=== PATIENT | female | born 1995 | race Caucasian/White ===

== ENCOUNTER 2021-06-12 20:24 | Emergency (ER) | payer SELFPAY ==
--- OUTSIDE RECORDS SUMMARY | 2021-06-12 20:43 | XMS REPORT | Continuity of Care Document ---
:1995 Author Organization [facility] t Address [address] [place] [address] Care Team Providers Name Role Phone PCP, DOES NOT HAVE A Primary Care Physician Unavailable Jaden TORRES Attending Clinician Unavailable Víctor Alarcon MD Attending Clinician Víctor ALARCON Attending Clinician Unavailable Víctor ALARCON Admitting Clinician Unavailable Payers Payer Name Policy Type Policy Number Effective Date Expiration Date S maribeth [id number] 2020 00:00:00 Problems Condition Condition Condition Status Onset Resolution Last Treating Co mments Source Name Details Category Date Date Treatment Clinician Date Drug abuse Drug abuse Disease Active Overview : Univers 7-12 Last used ity of 00:00: [address] Allergies, Adverse Reactions, Alerts Allergy Allergy Status Severity Reaction(s) Onset Inactive Treating Comm ents Source Name Type Date Date Clinician NO KNOWN Drug Active Univers ALLERGIE Class ity of S [facility] Social History Social Habit Start Date Stop Date Quantity Comments Source History of Cigarette Smoker Universi ty of tobacco use [facility] Sex Assigned At Universit y of [facility] Exposure to Not sure University of SARS-CoV-2 [facility] (event) Branch Alcohol intake 2018-10-28 2018-10-28 University of 00:00:00 00:00:00 [facility] Tobacco Comment 2017-05-31 2017-05-31 7 cigs/day Universit y of 00:00:00 00:00:00 [facility] Smoking Status Start Date Stop Date Source Current every day smoker 2018-10-28 00:00:00 Uni versity of [facility] Medications Ordered Filled Start Stop Current Ordering Indication Dosage Frequency Signature Comments Components Source Medication Medication Date Date Medication? Clinician (SIG) Name Name ketorolac 2020- No 30mg 30 mg, Unive rs (TORADOL) 09-08 Slow IV ity of injection 10:30: 09:33 [place], [place] 30 mg 00 :00 ONCE, 1 Medical dose, Wed Branch 09/09/19 at 0530, Routine
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 Branc h IUD tramadol 2017-05 Yes Take by Unive rs HCl 2-08 mouth. ity of (TRAMADOL 03:31: [place] ORAL) 45 Medical Branch phenazopyri Yes 200mg Take 1 Uni vers dine 01-17 tablet by ity of (PYRIDIUM) 00:00: mouth 3 [place] 200 mg 00 (three) Medical tablet times Branch daily after meals. triamcinolo Yes [id number] Apply to [facility] 01-06 [id number] area(s) 2 ity of acetonide 00:00: (two) [place] 0.1 % cream 00 times Medical daily. Branch ondansetron Yes 4mg Take 1 Univ ers (ZOFRAN) 4 11-12 tablet by ity of mg tablet 00:00: mouth [place] 00 every 8 Medical (eight) Branch hours as needed for N/V unresponsi ve to [facility] [place]. acetaminoph Yes [id number] 1{capsu Take 1 [facility] en-caff-but 10-29 le} capsule by it y of albital 00:00: mouth [place] (ESGIC) per 00 every 4 Medic al capsule (four) Branch hours as needed for Headache. Immunizations Ordered Immunization Filled Immunization Date Status Commen ts Source Name Name Abril COVID-19 Abril COVID-19 2020-10-18 Completed Vaccine Vaccine 00:00:00 Vital Signs Vital Name Observation Time Observation Value Comments Source Systolic blood 2019-09-09 10:34:00 111 mm[Hg] Univer sity of pressure [facility] Diastolic blood 2019-09-09 10:34:00 57 mm[Hg] Unive rsity of pressure [facility] Heart rate 2019-09-09 10:34:00 79 /min [facility] Respiratory rate 2019-09-09 10:34:00 15 /min [facility] Oxygen saturation in 2019-09-09 10:34:00 99 /min [facility] Arterial blood by [facility] Pulse oximetry [place] Body temperature 2019-09-09 09:07:00 36.72 Janet [facility] Body height 2019-09-09 09:07:00 167.6 cm [facility] Body weight 2019-09-09 09:07:00 59.875 kg [facility] BMI 2019-09-09 09:07:00 21.31 kg/m2 [facility] Procedures Procedure Date / Time Performing Clinician Source Performed XR PELVIS <3 VW 2019-09-09 10:12:10 Will Alarcon [facility] BASIC METABOLIC PANEL 2019-09-09 09:26:00 Will Alarcon [facility] (NA, K, CL, CO2, [facility] GLUCOSE, BUN, CREATININE, CA) CBC WITH DIFFERENTIAL 2019-09-09 09:26:00 Will Alarcon [facility] URINALYSIS 2019-09-09 09:26:00 Will Alarcon [facility] POCT TEST 2019-09-09 09:19:00 Will Alarcon [facility] CONSENT/REFUSAL FOR 2019-09-09 09:10:35 Doctor Unassigned, No Un [facility] DIAGNOSIS AND TREATMENT Name Medical [place] Encounters Start End Encounter Admission Attending Care Care Encounter Source Date/Time Date/Time Type Type Clinicians Facility Department ID 2020-10-18 2020-10-18 Outpatient GCCOVIDV GCCOVIDV [id number] GCCOVID 00:00:00 00:00:00 V 2020-01-22 2020-01-22 Outpatient Rohan TORRES [facility] [id number] Univers 15:00:00 15:00:00 MICHELLE [id number] [facility] 2020-01-14 2020-01-14 Outpatient Rohan TORRES [facility] [id number] Univers 09:30:00 09:30:00 MICHELLE [id number] [facility] 2020-01-14 2020-01-14 Outpatient R BRIAN [facility] [id number] Univers 09:30:00 09:30:[address] [facility] [place] [place] 2019-09-09 2019-09-09 Emergency Agnes [facility] [id number] Univers 04:09:49 05:36:[facility] [id number] it y of [place] [id number] [facility] [id number] [address] ([facility]) 2019-09-09 2019-09-09 Emergency X AGNES [facility] ERT [id number] Univers 04:09:49 05:36:[address] [facility] [place] [place] Results Test Description Test Time Test Comments Results Result Comments Source Urinalysis 2019-09-09 10:00:00 Test Item Value Reference Range Interpretation Comme nts APPEARANCE (test code = Hazy Clear A 1842386818) COLOR (test code = 3181177366) Yellow Yellow PH (test code = 0549687529) 4.8-8.0 SP GRAVITY (test code = 1.003-1.030 7963765305) GLU U QUAL (test code = Normal Normal 3562272086) BLOOD (test code = 5065249289) Negative Negative KETONES (test code = 9244120174) Negative Negative PROTEIN (test code = 2887-8) Negative Negative UROBILIN (test code = 6118745479) Normal Normal BILIRUBIN (test code = Negative Negative 9226889054) NITRITE (test code = 2501924339) Negative Negative LEUK LIZZ (test code = Negative Negative 1252141993) RBC/HPF (test code = 1828269172) See_Comment [Automated message] The system which ge nerated this result transmit alice reference range: 0 - 3 HP F. The reference range was not used to interpret th is result as normal/abnormal . WBC/HPF (test code = 2587064605) See_Comment [Automated message] The system which ge nerated this result transmit alice reference range: 0 - 5 HP F. The reference range was not used to interpret th is result as normal/abnormal . BACTERIA (test code = 7816984110) Negative Negative SQ EPITH (test code = 0765627608) See_Comment [Automated message] The system which ge nerated this result transmit alice reference range: <=2 HPF. The reference range was not u sed to interpret this result as normal/abnormal . Lab Interpretation (test code = Abnormal 66813-4) [facility] Metabolic Panel (NA, K, CL, CO2, GLUCOSE, BUN, CREATININE, CA)2019-09-09 09:43:00 Test Item Value Reference Range Interpretation Comments NA (test code = 140 mmol/L 135-145 7744783235) K (test code = 3.7 mmol/L 3.5-5 9814711130) CL (test code = 108 mmol/L 98-108 7898319380) CO2 TOTAL (test code = 27 mmol/L 23-31 9269176644) AGAP (test code = 2-16 1675172392) BUN (test code = 10 mg/dL 7-23 8377484305) GLUCOSE (test code = 93 mg/dL 70-110 5697250599) CREATININE (test code 0.66 mg/dL 0.5-1.04 = 1064349548) CALCIUM (test code = 9.8 mg/dL 8.6-10.6 2921444477) eGFR Calculation mL/min/1.73m2 (Non-) (test code = 3133921947) eGFR Calculation mL/min/1.73m2 () (test code = 6852721788) CRISTINA (test code = CRISTINA) Association of Glomerular Filtration Rate (GFR) and Staging of Kidney Disease* + -+ + ---+| GFR (mL/min/1.73 m2) ?| With Kidney Damage ?| ?Without Kidney Damage+ -------+ ------+ ---------+| ?>90 ?| ?Stage one ?| ? Normal ?+ --+ -+ ----+| ?60-89 ?| ?Stage two ?| ? Decreased GFR ? + -+ + ---+| ?30-59 ?| ?Stage three ?| ? Stage three ? + -+ + ---+| ?15-29 ?| ?Stage four ? | ? Stage four ?+ --+ -+ ----+| ?<15 (or dialysis) ? ?| ?Stage five ? | ? Stage five ?+ --+ -+ ----+ *Each stage assumes the associated GFR level has been in effect for at least three months. ?Stages 1 to 5, with or without kidney disease, indicate chronic kidney disease. Notes: Determination of stages one and two (with eGFR >59mL/min/1.73 m2) requires estimation of kidney damage for at least three months as defined by structural or functional abnormalities of the kidney, manifested by either:Pathological abnormalities or Markers of kidney damage (including abnormalities in the composition of the blood or urine or abnormalities in imaging tests). [facility] WITH [id number] 09:34:00 Test Item Value Reference Range Interpretation Comments WBC (test code = See_Comment [Automated 3012-2) message] The sy stem which generated this result transmitted reference range : 4.30 - 11.10 10*3/?L. The reference range was not used to interpret this result as normal/abnormal . RBC (test code = See_Comment [Automated 739-8) message] The sy stem which generated this result transmitted reference range : 3.93 - 5.25 10*6/?L. The reference range was not used to interpret this result as normal/abnormal . HGB (test code = 13.0 g/dL 11.6-15 718-7) HCT (test code = 38.3 % 35.7-45.2 4544-3) MCV (test code = 91.2 fL 80.6-95.5 787-2) MCH (test code = 31.0 pg 25.9-32.8 785-6) MCHC (test code = 33.9 g/dL 31.6-35.1 786-4) RDW-SD (test code = 46.2 fL 39-49.9 38090-1) RDW-CV (test code = 13.8 % 12-15.5 788-0) PLT (test code = See_Comment [Automated 777-3) message] The sy stem which generated this result transmitted reference range : 166 - 358 10*3/ ?L. The reference r joss was not used to interpret this result as normal/abnormal . MPV (test code = 10.3 fL 9.5-12.9 03887-3) NRBC/100 WBC (test See_Comment [Automat ed code = 4338289294) message] The system which generated this result transmitted reference range : 0.0 - 10.0 /100 WBCs. The refer ence range was not u sed to interpret th is result as normal/abnormal . NRBC x10^3 (test code <0.01 See_Comment [Auto mated = 5127944234) message] The s ystem which generated this result transmitted reference range : 10*3/?L. The reference range was not used to interpret this result as normal/abnormal . GRAN MAT (NEUT) % 38.7 % (test code = 770-8) IMM GRAN % (test code 0.10 % = 8458279374) LYMPH % (test code = 51.6 % 736-9) MONO % (test code = 6.3 % 5905-5) EOS % (test code = 2.6 % 713-8) BASO % (test code = 0.7 % 706-2) GRAN MAT x10^3(ANC) 2.96 10*3/uL 1.88-7.09 (test code = 2132876163) IMM GRAN x10^3 (test <0.03 0-0.06 code = 5606043729) LYMPH x10^3 (test code 3.95 10*3/uL 1.32-3.29 H = 731-0) MONO x10^3 (test code 0.48 10*3/uL 0.33-0.92 = 742-7) EOS x10^3 (test code = 0.20 10*3/uL 0.03-0.39 711-2) BASO x10^3 (test code 0.05 10*3/uL 0.01-0.07 = 704-7) Lab Interpretation Abnormal (test code = 42850-9) [facility] [id number] 09:19:00 Test Item Value Reference Range Interpretation Comments POCT PREG (test code = 1605) Negative On board controls acceptable with Present C Line (test code = 3574) POCT PREG LOT # (test code = 3575) [id number] POCT PREG TEST DATE (test 2020-12-10 code = 3576) Lab Interpretation (test code = Normal 10392-5) [facility]"
[2021-06-12] MEDS ORDERED: METOCLOPRAMIDE 10 MG/2mL INJ ONE (21:48)
[2021-06-12] MEDS ORDERED: DIPHENHYDRAMINE 50 MG/ML VIAL ONE (21:48)
[2021-06-12] MEDS ORDERED: NA CHLORIDE 0.9% 1,000 ML ONE (21:49)
[2021-06-12] MEDS ORDERED: ONDANSETRON 4 MG/2 ML VIAL ONE (21:49)
[2021-06-12 21:57] LABS: Urine Blood Trace-lysed (Negative); Urine Glucose Negative (Negative); Urine Protein Negative (Negative)
[2021-06-12 22:14] LABS: Urine Bacteria >50 /HPF (<20); Urine RBC <5 /HPF (NONE SEEN)
[2021-06-12 22:23] LABS: Absolute Lymphocytes (CBC) 0.5 K/uL (0.7-4.9); Hematocrit 39.9 % (36.0-45.0); Lymphocytes % 9.5 % (15.3-44.8); MPV 8.2 fL (7.6-11.3); RBC Red Blood Cell Count 4.53 M/uL (3.86-4.86)
[2021-06-12 22:25] LABS: Albumin 3.9 g/dL (3.4-5.0); Bilirubin Direct 0.2 mg/dL (0-0.2); Bilirubin Total 0.8 mg/dL (0.2-1.0); Potassium 3.4 mmol/L (3.5-5.1); Protein, Total 7.9 g/dL (6.4-8.2)
[2021-06-12] MEDS ORDERED: NA CHLORIDE 0.9% 50 ML ONE (22:26)
[2021-06-12] MEDS ORDERED: KETOROLAC 30 MG/ML INJ ONE (22:26)
[2021-06-12] MEDS ORDERED: CEFTRIAXONE 1000 MG/VIAL ONE (22:26)
[2021-06-12 23:47] LABS: SARS-COV-2 RT PCR POSITIVE (NEGATIVE)
--- NOTE | 2021-06-12 23:59 | ER ---
Nurse's Notes [facility] Name: Ariadna Pham Age: 25 yrs Sex: Female : 1995 Arrival Date: 06/12/2021 Time: 20:27 Bed 18 Private MD: Diagnosis: Coronavirus infection, unspecified;UTI/ Urinary tract infection, site not specified Presentation: 06/12 20:52 Chief complaint: Patient states: "I just started feeling sick. I felt like I dying. I tw5 had a migrane, and really high fever about an hour ago, then chills and sweats and shortness of breath.". Coronavirus screen: Vaccine status: Patient reports receiving the 2nd dose of the covid vaccine. J and J just the one shot. Ebola Screen: Patient negative for fever greater than or equal to 101.5 degrees Fahrenheit, and additional compatible Ebola Virus Disease symptoms Patient denies exposure to infectious person. Patient denies travel to an Ebola-affected area in the 21 days before illness onset. Initial Sepsis Screen: Does the patient meet any 2 criteria? HR > 90 bpm. Does the patient have a suspected source of infection? No. Patient's initial sepsis screen is negative. Risk Assessment: Do you want to hurt yourself or someone else? Patient reports no desire to harm self or others. Onset of symptoms was June 12, 2021 at 18:00. 20:52 Method Of Arrival: Ambulatory tw5 20:52 Acuity: AIDA 3 tw5 Triage Assessment: 20:56 Headache History: Denies prior headaches. General: Appears uncomfortable, Behavior is tw5 calm, cooperative, appropriate for age. Pain: Complains of pain in headache Pain currently is 7 out of 10 on a pain scale. Pain began 3 hours ago. Pain: Also complains of decreased appetite, photophobia. Neuro: Level of Consciousness is awake, alert, obeys commands, Oriented to person, place, time, situation. 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 - Social history:: Smoking status: Patient reports the use of cigarette tobacco products, smokes one-half pack cigarettes per day. Screenin/01 00:13 Abuse screen: Denies threats or abuse. Nutritional screening: No deficits noted. sf1 Tuberculosis screening: No symptoms or risk factors identified. Fall Risk None identified. Vital Signs: 06/12 20:52 BP 126 / 73; Pulse 138; Resp 20; Temp 98.7(O); Pulse Ox 100% on R/A; Weight 97.98 kg; tw5 Height 5 ft. 7 in. (170.18 cm); Pain 7/10; 23:56 BP 122 / 72; Pulse 116; Resp 18; Pulse Ox 98% on R/A; sf1 20:52 Body Mass Index 33.83 (97.98 kg, 170.18 cm) tw5 ED Course: 20:27 Patient arrived in ED. es 20:52 Jaye Chacon is Primary Nurse. tw5 20:52 Matt Gutiérrez PA is PHCP. cp 20:52 Matt Barros MD is Attending Physician. cp 20:56 Triage completed. tw5 20:56 Arm band placed on left wrist. tw5 21:58 Urine Dipstick-Ancillary Sent. ld1 21:58 COVID-19/FLU A+B/RSV (Document "Date of Onset" if Symptomatic) Sent. ld1 22:01 CBC with Automated Diff Sent. sf1 22:01 Liver (Hepatic) Function Sent. sf1 22:01 Basic Metabolic Panel Sent. sf1 22:02 Basic Metabolic Panel Sent. sf1 22:02 CBC with Diff Sent. sf1 22:02 Hepatic Function Sent. sf1 22:02 Inserted saline lock: 20 gauge in right antecubital area, using aseptic technique. sf1 Blood collected. 22:13 PHCP role handed off by Matt Gutiérrez PA pm1 22:13 Nile Hagan NP is PHCP. pm1 06/13 00:13 Patient has correct armband on for positive identification. sf1 00:13 No provider procedures requiring assistance completed. IV discontinued, intact, sf1 bleeding controlled, No redness/swelling at site. Pressure dressing applied. Administered Medications: 06/12 22:01 Drug: Reglan (metoCLOPramide) 10 mg Route: IVP; Site: right antecubital; sf1 22:01 Drug: Zofran (Ondansetron) 4 mg Route: IVP; Site: right antecubital; sf1 22:01 Drug: Benadryl (diphenhydrAMINE) 25 mg Route: IVP; Site: right antecubital; sf1 22:02 Drug: NS 0.9% 1000 ml Route: IV; Rate: 1 bolus; Site: right antecubital; sf1 22:30 Drug: Ketorolac 30 mg Route: IVP; Site: right antecubital; sf1 22:30 Drug: Rocephin - (cefTRIAXone) 1 grams Route: IVPB; Infused Over: 30 mins; Site: right sf1 antecubital; Outcome: 23:59 Discharge ordered by . pm1 06/13 00:13 Discharged to home ambulatory. sf1 Condition: good Discharge instructions given to patient, Instructed on discharge instructions, follow up and referral plans. Demonstrated understanding of instructions, follow-up care, medications, Prescriptions given X 2. 00:14 Patient left the ED. sf1 Signatures: Sara Yañez Corey, PA PA Nile Watkins, ROM CANARY RAISER pm1 Yessi Nicole RN RN ld1 Jaye Chacon tw5 Rita Taylor RN RN sf1
--- NOTE | 2021-06-13 | EDPHYS ---
Physician Documentation [facility] Name: Ariadna Pham Age: 25 yrs Sex: Female : 1995 Arrival Date: 06/12/2021 Time: 20:27 Bed 18 Private MD: ED Physician Matt Barros HPI: 06/12 21:15 This 25 yrs old Female presents to ER via Ambulatory with complaints of Runny Nose, cp Headache, Cough. 21:15 The patient or guardian reports cough. Onset: The symptoms/episode began/occurred cp today. Associated signs and symptoms: Pertinent positives: headache. 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 - Social history:: Smoking status: Patient reports the use of cigarette tobacco products, smokes one-half pack cigarettes per day. ROS: 21:20 Constitutional: Negative for fever, poor PO intake. cp 21:20 ENT: Positive for rhinorrhea. cp 21:20 Respiratory: Positive for cough, Negative for shortness of breath, wheezing. 21:20 Abdomen/GI: Negative for abdominal pain, vomiting, diarrhea, constipation. 21:20 Neuro: Positive for headache. 21:20 All other systems are negative. 23:52 Cardiovascular: Negative for chest pain, palpitations, and edema, Abdomen/GI: Negative pm1 for abdominal pain, nausea, vomiting, diarrhea, and constipation. 23:52 Respiratory: Positive for cough, Negative for shortness of breath. 23:52 Neuro: Positive for headache. Exam: 21:25 Constitutional: The patient appears in no acute distress, alert, awake, non-toxic, well cp developed, well nourished. 21:25 Head/Face: Normocephalic, atraumatic. cp 21:25 Eyes: Periorbital structures: appear normal, Conjunctiva: normal, no exudate, no injection, Sclera: no appreciated abnormality, Lids and lashes: appear normal, bilaterally. 21:25 ENT: External ear(s): are unremarkable, Ear canal(s): are normal, clear, TM's: dullness, bilaterally, Nose: is normal, Mouth: Lips: moist, Oral mucosa: moist, Posterior pharynx: Airway: no evidence of obstruction, patent, Tonsils: are normal in appearance. 21:25 Neck: ROM/movement: is normal, is supple, without pain, no range of motions limitations, no meningismus, Lymph nodes: no appreciated lymphadenopathy. 21:25 Chest/axilla: Inspection: normal. 21:25 Cardiovascular: Rate: tachycardic, Rhythm: regular. 21:25 Respiratory: the patient does not display signs of respiratory distress, Respirations: normal, no use of accessory muscles, no retractions, labored breathing, is not present, Breath sounds: are clear throughout, no decreased breath sounds, no stridor, no wheezing. 21:25 Abdomen/GI: Exam negative for discomfort, distension, guarding, Inspection: abdomen appears normal. 21:25 Skin: no rash present. 21:25 Neuro: Orientation: to person, place \\T\\ time. Mentation: is normal, Motor: moves all fours, strength is normal, Sensation: is normal. 21:52 ECG was reviewed by the Attending Physician. cp Vital Signs: 20:52 BP 126 / 73; Pulse 138; Resp 20; Temp 98.7(O); Pulse Ox 100% on R/A; Weight 97.98 kg; tw5 Height 5 ft. 7 in. (170.18 cm); Pain 7/10; 23:56 BP 122 / 72; Pulse 116; Resp 18; Pulse Ox 98% on R/A; sf1 20:52 Body Mass Index 33.83 (97.98 kg, 170.18 cm) tw5 MDM: 20:58 Patient medically screened. [facility] 23:52 Data reviewed: vital signs. Data interpreted: Pulse oximetry: on room air is 100 %. pm1 Interpretation: normal. 23:52 Counseling: I had a detailed discussion with the patient and/or guardian regarding: the pm1 historical points, exam findings, and any diagnostic results supporting the discharge/admit diagnosis, lab results, the need for outpatient follow up, to return to the emergency department if symptoms worsen or persist or if there are any questions or concerns that arise at home. 06/12 21:05 Order name: COVID-19/FLU A+B/RSV (Document "Date of Onset" if Symptomatic); Complete cp Time: 23:51 06/12 21:05 Order name: Urine Microscopic Only; Complete Time: 22:26 cp 06/12 21:09 Order name: Basic Metabolic Panel 06/12 21:09 Order name: CBC with Diff 06/12 21:09 Order name: Hepatic Function 06/12 21:10 Order name: Basic Metabolic Panel; Complete Time: 22:26 EDOH 06/12 21:10 Order name: CBC with Automated Diff; Complete Time: 22:26 EDOH 06/12 21:10 Order name: Liver (Hepatic) Function; Complete Time: 22:26 EDOH 06/12 21:57 Order name: Urine Dipstick-Ancillary; Complete Time: 22:13 [facility] 06/12 22:09 Order name: Urine --Ancillary (enter results); Complete Time: 22:26 mw2 06/12 22:15 Order name: Urine Culture [facility] 06/12 21:05 Order name: EKG; Complete Time: 21:05 cp 06/12 21:05 Order name: EKG - Nurse/Tech; Complete Time: 21:58 cp 06/12 21:05 Order name: Urine Dipstick-Ancillary (obtain specimen); Complete Time: 21:58 cp 06/12 21:05 Order name: Urine Test (obtain specimen); Complete Time: 21:58 cp 06/12 21:05 Order name: Urine Test (obtain specimen); Complete Time: 21:58 cp 06/12 21:09 Order name: IV Saline Lock; Complete Time: 22:02 cp 06/12 21:09 Order name: Labs collected and sent; Complete Time: 22:02 cp EC:52 Rate is 131 beats/min. Rhythm is regular. OH interval is normal. QRS interval is cp normal. QT interval is normal. Interpreted by me. Reviewed by me. Administered Medications: 22: Drug: Reglan (metoCLOPramide) 10 mg Route: IVP; Site: right antecubital; sf1 22: Drug: Zofran (Ondansetron) 4 mg Route: IVP; Site: right antecubital; sf1 22: Drug: Benadryl (diphenhydrAMINE) 25 mg Route: IVP; Site: right antecubital; sf1 22:02 Drug: NS 0.9% 1000 ml Route: IV; Rate: 1 bolus; Site: right antecubital; sf1 22:30 Drug: Ketorolac 30 mg Route: IVP; Site: right antecubital; sf1 22:30 Drug: Rocephin - (cefTRIAXone) 1 grams Route: IVPB; Infused Over: 30 mins; Site: right sf1 antecubital; Disposition: 06/13 15:17 Co-signature as Attending Physician, Matt Barros MD I agree with the assessment and natalie plan of care. Disposition Summary: 06/12/21 23:59 Discharge Ordered Location: Home pm1 Problem: new pm1 Symptoms: have improved pm1 Condition: Stable pm1 Diagnosis - Coronavirus infection, unspecified pm1 - UTI/ Urinary tract infection, site not specified pm1 Followup: pm1 - With: Emergency Department - When: As needed - Reason: Worsening of condition Followup: pm1 - With: Private Physician - When: 2 - 3 days - Reason: Recheck today's complaints, Continuance of care, Re-evaluation by your physician Discharge Instructions: - Discharge Summary Sheet pm1 - Urinary Tract Infection, Adult pm1 - COVID-19 pm1 - COVID-19 Frequently Asked Questions pm1 - 10 Things You Can Do to Manage Your COVID-19 Symptoms at Home - [facility] pm1 - COVID-19: Quarantine vs. Isolation - [facility] pm1 Forms: - Medication Reconciliation Form pm1 - Thank You Letter pm1 - Antibiotic Education pm1 - Prescription Opioid Use pm1 Prescriptions: - lfgrkrlviu-bhnaspc-quacqfqy - take 1 tablet by ORAL route every 4 hours As needed; 20 tablet; Refills: 0, pm1 Product Selection Permitted - Bactrim DS 800-160 mg Oral Tablet - take 1 tablet by ORAL route every 12 hours for 10 days; 20 tablet; Refills: 0, pm1 Product Selection Permitted Signatures: Dispatcher [employer] Matt Soto MD MD cha Page, Corey, PA PA cp Marinas, Patrick, RADIOLOGIC THERAPIST RADIOLOGIC THERAPIST pm1 Jaye Chacon tw5 Rita Taylor RN RN sf1
[2021-06-13 00:29] VITALS: TEMP 98.7
[2021-06-13 00:30] VITALS: BP 122/72; O2SAT 98
--- NOTE | 2021-06-13 08:15 | EKG ---
Test Date: 2021-06-12 Test Time: 21:45:41 Environmental Services Floor Tech: STEVEN MEASUREMENT RESULTS: Intervals: Rate: 131 NH: 176 QRSD: 86 QT: 280 QTc: 413 [place]: P: 55 NH: 176 QRS: 68 T: 18 INTERPRETIVE STATEMENTS: Sinus tachycardia Septal infarct, age undetermined Abnormal ECG No previous ECG available for comparison Electronically Signed On 06-13-21 08:13:44 S[employer]IOR [employer] CONSULTANT by Uziel Haider
== END 2021-06-13 00:14 | disposition home or self-care (01) ==
LOC: ER 20:24
DX: U07.1 COVID-19 (principal); N39.0 Urinary tract infection, site not specified; F32.A Depression, unspecified; F17.210 Nicotine dependence, cigarettes, uncomplicated
CPT/HCPCS: 0241U; 36415; 80048; 80076; 81003; 81015; 81025; 85025; 87077; 87086; 87088; 87186; 93005; 96374; 96375; 99284; J1200; J2405; J2765; J7030

== ENCOUNTER 2021-10-28 15:35 | Emergency (ER) | payer SELFPAY ==
--- OUTSIDE RECORDS SUMMARY | 2021-10-28 15:38 | XMS REPORT | Continuity of Care Document ---
:1995 Author Organization [facility] t Address [address] [place] [address] Care Team Providers Name Role Phone Pcp, Does Not Have A Primary Care Physician Hever KAYE Attending Clinician Unavailable Hever De Attending Clinician Unknown Attending Clinician Unavailable Jas Ibanez Attending Clinician JAS BERGER Attending Clinician Unavailable Doctor Unassigned, Name Attending Clinician Unavailable Jaden TORRES Attending Clinician Unavailable Víctor Alarcon MD Attending Clinician Víctor ALARCON Attending Clinician Unavailable Víctor ALARCON Admitting Clinician Unavailable Payers Payer Name Policy Type Policy Number Effective Date Expiration Date S ource Problems Condition Condition Condition Status Onset Resolution Last Treating Co mments Source Name Details Category Date Date Treatment Clinician Date Drug abuse Drug abuse Disease Active Overview : Univers 7-12 Formattin ity of 00:00: g of this [place] 00 note Medical might be Branch different from the original. Last used 7 Allergies, Adverse Reactions, Alerts Allergy Allergy Status Severity Reaction(s) Onset Inactive Treating Comm ents Source Name Type Date Date Clinician NO KNOWN Drug Active Univers ALLERGIE Class ity of S [facility] Social History Social Habit Start Date Stop Date Quantity Comments Source History of Cigarette Smoker Universi ty of tobacco use [facility] Exposure to Not sure University of SARS-CoV-2 [place] Medical (event) Branch Alcohol intake 2018-10-28 2018-10-28 Current University of 00:00:00 00:00:00 non-drinker of [facility] alcohol (finding) Branch Tobacco Comment 2017-05-31 2017-05-31 7 cigs/day Universit y of 00:00:00 00:00:00 [facility] Tobacco use and 2015-11-23 2015-11-23 Never used Universit y of exposure 00:00:00 00:00:00 [facility] Sex Assigned At [birth year] Universit y of 00:00:00 00:00:00 [facility] Smoking Status Start Date Stop Date Source Current every day smoker 2015-11-23 00:00:00 Uni versity [facility] Medications Ordered Filled Start Stop Current Ordering Indication Dosage Frequency Signature Comments Components Source Medication Medication Date Date Medication? Clinician (SIG) Name Name lidocaine Yes [id number] 15 mL Un shane 2% viscous -04 swished in ity of (LIDOCAINE 00:00: the mouth [place] VISCOUS) 2 00 and spit Medic al % solution out no Branch more frequently than every 3 hours cephALEXin 2021- No [id number] 500mg Take 1 Univers 500 mg 3-04 -12 tablet by ity of tablet 00:00: 05:59 mouth 4 [place] 00 :00 (four) Medical times Branch daily for 7 days. phenazopyri Yes [id number] 200mg Take 1 Univers dine 2-27 tablet by ity of (PYRIDIUM) 00:00[place] 200 mg 00 (three) Medical tablet times Branch daily after meals. phenazopyri Yes [id number] 200mg Take 1 Univers dine 2-27 tablet by ity of (PYRIDIUM) 00:00: mouth [place] 200 mg 00 (three) Medical tablet times Branch daily after meals. phenazopyri 0 Yes [id number] 200mg Take 1 Univers dine 2-27 tablet by ity of (PYRIDIUM) 00:00: mouth [place] 200 mg 00 (three) Medical tablet times Branch daily after meals. Nitrofurant 2021- No [id number] 100mg Take 1 Univers oin&Nit. 2-27 03-07 capsule by ity of [place] 00:00: 05:59 mouth 2 [place] (MACROBID) 00 :00 (two) Medical 100 mg times Branch capsule daily for 7 days. Nitrofurant 2021- No [id number] 100mg Take 1 Univers oin&Nit. 07-09- capsule by ity of [place] 00:00: 05:59 mouth 2 [place] (MACROBID) 00 :00 (two) Medical 100 mg times Branch capsule daily for 7 days. Nitrofurant 2021- No [id number] 100mg Take 1 Univers oin&Nit. 07-09- capsule by ity of [place] 00:00: 05:59 mouth 2 [place] (MACROBID) 00 :00 (two) Medical 100 mg times Branch capsule daily for 7 days. ketorolac 2019- No 30mg 30 mg, Unive rs (TORADOL) 09-08 Slow IV ity of injection 10:30: 09:33 Push, [place] 30 mg 00 :00 ONCE, 1 Medical dose, [facility] 09/09/19 at 0530, Routine
history faculty member approving Restricted medication : WILL ALARCON levonorgest 2017-05 Yes 1{devic 1 Device Univers rel 2-08 e} by ity of (MIRENA) 20 03:31: Intrauteri [place] mcg/24 hr 45 ne route Medica l (5 years) once now. Branc h IUD tramadol 2017-05 Yes Take by Unive rs HCl 2-08 mouth. ity of (TRAMADOL 03:31: [place] ORAL) 45 [facility] levonorgest 2017-05 Yes 1{devic 1 Device Univers rel 2-07 e} by ity of (MIRENA) 20 21:31: Intrauteri [place] mcg/24 hr 45 ne route Medica l (5 years) once now. Branc h IUD tramadol 2017-05 Yes Take by Unive rs HCl 2-07 mouth. ity of (TRAMADOL 21:31: [place] ORAL) 45 [facility] levonorgest 2017-05 Yes 1{devic 1 Device Univers rel 2-07 e} by ity of (MIRENA) 20 21:31: Intrauteri [place] mcg/24 hr 45 ne route Medica l (5 years) once now. Branc h IUD tramadol 2017-05 Yes Take by Unive rs HCl 2-07 mouth. ity of (TRAMADOL 21:31: [place] ORAL) 45 Medical Branch levonorgest 2017-05 Yes 1{devic 1 Device Univers rel 2 e} by ity of (MIRENA) 20 21:31: Intrauteri [place] mcg/24 hr 45 ne route Medica l (5 years) once now. Branc h IUD tramadol 2017-05 Yes Take by Unive rs HCl 2- mouth. ity of (TRAMADOL 21:31: [place] ORAL) 45 Medical Branch phenazopyri 2018-0 Yes 200mg Take 1 Uni vers dine 9 tablet by ity of (PYRIDIUM) 00:00: mouth 3 [place] 200 mg 00 (three) Medical tablet times Branch daily after meals. phenazopyri 2018-0 Yes 200mg Take 1 Uni vers dine 9- tablet by ity of (PYRIDIUM) 00:00: mouth 3 [place] 200 mg 00 (three) Medical tablet times Branch daily after meals. phenazopyri 2017-0 Yes 200mg Take 1 Uni vers dine 9 tablet by ity of (PYRIDIUM) 00:00: mouth 3 [place] 200 mg 00 (three) Medical tablet times Branch daily after meals. phenazopyri 2018-0 Yes 200mg Take 1 Uni vers dine 9 tablet by ity of (PYRIDIUM) 00:00: mouth 3 [place] 200 mg 00 (three) Medical tablet times Branch daily after meals. triamcinolo 2018- Yes [id number] Apply to [place] [address] [id number] area(s) 2 ity of acetonide 00:00: (two) [place] 0.1 % cream 00 times Medical daily. Branch triamcinolo 2017- Yes [id number] Apply to [facility] [id number] area(s) 2 ity of acetonide 00:00: (two) [place] 0.1 % cream 00 times Medical daily. Branch triamcinolo 2018-0 Yes [id number] Apply to [place] [address] [id number] area(s) 2 ity of acetonide 00:00: (two) [place] 0.1 % cream 00 times Medical daily. Branch triamcinolo 2017- Yes [id number] Apply to [facility] [id number] area(s) 2 ity of acetonide 00:00: (two) [place] 0.1 % cream 00 times Medical daily. Branch ondansetron 2018-0 Yes 4mg Take 1 Univ ers (ZOFRAN) 4 7-03 tablet by ity of mg tablet 00:00: mouth [place] 00 every 8 Medical (eight) Branch hours as needed for N/V unresponsi ve to Promethazi ne. ondansetron 2018-0 Yes 4mg Take 1 Univ ers (ZOFRAN) 4 7-03 tablet by ity of mg tablet 00:00: mouth [place] 00 every 8 Medical (eight) Branch hours as needed for N/V unresponsi ve to Promethazi ne. ondansetron 2018-0 Yes 4mg Take 1 Univ ers (ZOFRAN) 4 7-03 tablet by ity of mg tablet 00:00: mouth [place] 00 every 8 Medical (eight) Branch hours as needed for N/V unresponsi ve to Promethazi ne. ondansetron 2018-0 Yes 4mg Take 1 Univ ers (ZOFRAN) 4 7-03 tablet by ity of mg tablet 00:00: mouth [place] 00 every 8 Medical (eight) Branch hours as needed for N/V unresponsi ve to Promethazi ne. acetaminoph Yes [id number] 1{capsu Take 1 Univers en-caff-but 6-19 le} capsule by it y of albital 00:00: mouth [place] (ESGIC) per 00 every 4 Medic al capsule (four) Branch hours as needed for Headache. acetaminoph Yes [id number] 1{capsu Take 1 Univers en-caff-but 6-19 le} capsule by it y of albital 00:00: mouth [place] (ESGIC) per 00 every 4 Medic al capsule (four) Branch hours as needed for Headache. acetaminoph 2018- Yes [id number] 1{capsu Take 1 Univers en-caff-but 6-19 le} capsule by it y of albital 00:00: mouth [place] (ESGIC) per 00 every 4 Medic al capsule (four) Branch hours as needed for Headache. acetaminoph Yes [id number] 1{capsu Take 1 Univers en-caff-but 6-19 le} capsule by it y of albital 00:00: mouth [place] (ESGIC) per 00 every 4 Medic al capsule (four) Branch hours as needed for Headache. Immunizations Ordered Immunization Filled Immunization Date Status Commen ts Source Name Name Abril COVID-19 Abril COVID-19 2020-10-18 Completed Vaccine Vaccine 00:00:00 Vital Signs Vital Name Observation Time Observation Value Comments Source Systolic blood 2021-07-14 16:18:00 131 mm[Hg] Univer sity of [facility] Diastolic blood 2021-07-14 16:18:00 80 mm[Hg] Unive rsity of [facility] Heart rate 2021-07-14 16:18:00 92 /min Universi ty of [facility] Body temperature 2021-07-14 16:18:00 36.94 [facility] Respiratory rate 2021-07-14 16:18:00 17 /min Univ ersity [facility] Body height 2021-07-14 16:18:00 170.2 cm Universi ty of [facility] Body weight 2021-07-14 16:18:00 90.719 kg Universi ty of [facility] BMI 2021-07-14 16:18:00 31.32 kg/m2 Universi ty of [facility] Oxygen saturation in 2021-07-14 16:18:00 96 /min University of Arterial blood by [facility] Pulse oximetry Branch Systolic blood 2021-07-09 19:52:00 124 mm[Hg] Univer sity of [facility] Diastolic blood 2021-07-09 19:52:00 79 mm[Hg] Unive rsity of [facility] Heart rate 2021-07-09 19:52:00 96 /min Universi ty of [facility] Body temperature 2021-07-09 19:52:00 37.11 [facility] ersity [facility] Respiratory rate 2021-07-09 19:52:00 18 /min Univ ersity [facility] Body height 2021-07-09 19:52:00 170.2 cm Universi ty of [facility] Body weight 2021-07-09 19:52:00 90.719 kg Universi ty of [facility] BMI 2021-07-09 19:52:00 31.32 kg/m2 Universi ty of [facility] Oxygen saturation in 2021-07-09 19:52:00 97 /min University of Arterial blood by [facility] Pulse oximetry Branch Systolic blood 2019-09-09 10:34:00 111 mm[Hg] Univer sity of pressure [facility] Diastolic blood 2019-09-09 10:34:00 57 mm[facility]Hg] [facility] Heart rate 2019-09-09 10:34:00 79 /min [facility] Respiratory rate 2019-09-09 10:34:00 15 /min [facility] Oxygen saturation in 2019-09-09 10:34:00 99 /min [facility] Arterial blood by [facility] Pulse oximetry [place] Body temperature 2019-09-09 09:07:00 36.72 [facility] Body height 2019-09-09 09:07:00 167.6 cm [facility] Body weight 2019-09-09 09:07:00 59.875 kg [facility] BMI 2019-09-09 09:07:00 21.31 kg/m2 [facility] Procedures Procedure Date / Time Performing Clinician Source Performed [facility] STATEMENT OF PATIENT 2021-07-09 06:01:00 Doctor Unassigned, [facility] FINANCIAL RESPONSIBILITY [facility] XR PELVIS <3 VW 2019-09-09 10:12:10 Will Alarcon [facility] BASIC METABOLIC PANEL 2019-09-09 09:26:00 Will Alarcon [facility] (NA, K, CL, CO2, GLUCOSE, Medica l Branch BUN, CREATININE, CA) CBC WITH DIFFERENTIAL 2019-09-09 09:26:00 Will Alarcon [facility] URINALYSIS 2019-09-09 09:26:00 Will Alarcon [facility] POCT TEST 2019-09-09 09:19:00 Will Alarcon [facility] CONSENT/REFUSAL FOR 2019-09-09 09:10:35 Doctor Unassbelia, [facility] DIAGNOSIS AND TREATMENT [facility] [place] Encounters Start End Encounter Admission Attending Care Care Encounter Source Date/Time Date/Time Type Type Clinicians Facility Department ID 2021-07-14 2021-07-14 Outpatient Rohan KAYE [facility] [id number] Univers 10:00:00 10:28:07 HARVEY ity [facility] 2021-07-14 2021-07-14 Urgent Harvey Kaye [facility] [id number] Univers 10:00:00 10:28:07 Care Unknown, Attending LEAGUE [id number] ity [facility] [id number] [facility] [id number] [address] 2021-07-14 2021-07-14 Outpatient R [facility] [id number] Univers 10:00:00 10:00:00 [id number] ity [facility] 2021-07-09 2021-07-09 Urgent Namrata Berger [facility] [id number] Univers 13:45:00 14:00:00 Care Unknown, Attending LEAGUE [id number] ity [facility] [id number] [facility] [id number] [address] 2021-07-09 2021-07-09 Outpatient R [facility] [id number] Univers 13:45:00 13:45:00 [id number] ity [facility] 2021-07-09 2021-07-09 Outpatient R CELINE [facility] [id number] Univers 13:45:00 13:45:[address] [facility] 2021-07-09 2021-07-09 Orders Doctor KATZ [id number] Univers 00:00:00 00:00:00 Only Unassigned, [place] [id number] ity of [place] [address]686 [facility] [id number] [address] 2020-10-18 2020-10-18 Outpatient GCCOVIDV GCCOVIDV [id number] GCCOVID 00:00:00 00:00:00 V 2020-01-22 2020-01-22 Outpatient Rohan TORRES [facility] [id number] Univers 15:00:00 15:00:00 MICHELLE [id number] ity [facility] 2020-01-14 2020-01-14 Outpatient Rohan BRIAN [facility] [id number] Univers 09:30:00 09:30:[id number] [facility] 2020-01-14 2020-01-14 Outpatient Rohan BRIAN [facility] [id number] Univers 09:30:00 09:30:[address] [facility] 2019-09-09 2019-09-09 [facility] [id number] Univers 04:09:49 05:36:00 [place] [employer] [id number] it y of [facility] 4.2.7.2.686 [facility] [phone] [address] ([facility]) 2019-09-09 2019-09-09 Emergency X ANAM [facility] ERT [id number] Univers 04:09:49 05:36:00 [facility] Test Description Test Time Test Comments Results Result Comments Source Urinalysis 2019-09-09 10:00:00 Test Item Value Reference Range Interpretation Comme nts APPEARANCE (test code = Hazy Clear A 9005065461) COLOR (test code = 4282923025) Yellow Yellow PH (test code = 2903162788) 4.8-8.0 SP GRAVITY (test code = 1.003-1.030 3328110978) GLU U QUAL (test code = Normal Normal 4036788807) BLOOD (test code = 6133512852) Negative Negative KETONES (test code = 2791224493) Negative Negative PROTEIN (test code = 2887-8) Negative Negative UROBILIN (test code = 4035498368) Normal Normal BILIRUBIN (test code = Negative Negative 5403490987) NITRITE (test code = 7537752298) Negative Negative LEUK LIZZ (test code = Negative Negative 1916562936) RBC/HPF (test code = 6921351036) See_Comment [Automated message] The system which ge nerated this result transmit alice reference range: 0 - 3 HP F. The reference range was not used to interpret th is result as normal/abnormal . WBC/HPF (test code = 6367880042) See_Comment [Automated message] The system which ge nerated this result transmit alice reference range: 0 - 5 HP F. The reference range was not used to interpret th is result as normal/abnormal . BACTERIA (test code = 8681246322) Negative Negative SQ EPITH (test code = 0217070378) See_Comment [Automated message] The system which ge nerated this result transmit alice reference range: <=2 HPF. The reference range was not u sed to interpret this result as normal/abnormal . Lab Interpretation (test code = Abnormal 77676-6) [facility] Metabolic Panel (NA, K, CL, CO2, GLUCOSE, BUN, CREATININE, CA)2019-09-09 09:43:00 Test Item Value Reference Range Interpretation Comments NA (test code = 140 mmol/L 135-145 1768013114) K (test code = 3.7 mmol/L 3.5-5 8251234589) CL (test code = 108 mmol/L 98-108 3337544657) CO2 TOTAL (test code = 27 mmol/L 23-31 2586069199) AGAP (test code = 2-16 6844845461) BUN (test code = 10 mg/dL 7-23 8833433342) GLUCOSE (test code = 93 mg/dL 70-110 0580381216) CREATININE (test code 0.66 mg/dL 0.5-1.04 = 5212650957) CALCIUM (test code = 9.8 mg/dL 8.6-10.6 5995396015) eGFR Calculation mL/min/1.73m2 (Non-) (test code = 0283897727) eGFR Calculation mL/min/1.73m2 () (test code = 2384800018) CRISTINA (test code = CRISTINA) Association of [...] or urine or abnormalities in imaging tests). [facility] WITH [id number] 09:34:00 Test Item Value Reference Range Interpretation Comments WBC (test code = See_Comment [Automated 0530-2) message] The sy stem which generated this result transmitted reference range : 4.30 - 11.10 10*3/?L. The reference range was not used to interpret this result as normal/abnormal . RBC (test code = See_Comment [Automated 456-8) message] The sy stem which generated this [...] RDW-SD (test code = 46.2 fL 39-49.9 71900-5) RDW-CV (test code = 13.8 % 12-15.5 788-0) PLT (test code = See_Comment [Automated 097-3) message] The sy stem which generated this result transmitted reference range : 166 - 358 10*3/ ?L. The reference r joss was not used to interpret this result as normal/abnormal . MPV (test code = 10.3 fL 9.5-12.9 84219-5) NRBC/100 WBC (test See_Comment [Automat ed code = 1277117129) message] The system which generated this result transmitted reference range : 0.0 - 10.0 /100 WBCs. The refer ence range was not u sed to interpret th is result as normal/abnormal . NRBC x10^3 (test code <0.01 See_Comment [Auto mated = 4045603341) message] The s ystem which generated this result transmitted reference range : 10*3/?L. The reference range was not used to interpret this result as normal/abnormal . GRAN MAT (NEUT) % 38.7 % (test code = 770-8) IMM GRAN % (test code 0.10 % = 4448682366) LYMPH % (test code = 51.6 % 736-9) MONO % (test code = 6.3 % 5905-5) EOS % (test code = 2.6 % 713-8) BASO % (test code = 0.7 % 706-2) GRAN MAT x10^3(ANC) 2.96 10*3/uL 1.88-7.09 (test code = 3646639684) IMM GRAN x10^3 (test <0.03 0-0.06 code = 8158522253) LYMPH x10^3 (test code 3.95 10*3/uL 1.32-3.29 H = 731-0) MONO x10^3 (test code 0.48 10*3/uL 0.33-0.92 = 742-7) EOS x10^3 (test code = 0.20 10*3/uL 0.03-0.39 711-2) BASO x10^3 (test code 0.05 10*3/uL 0.01-0.07 = 704-7) Lab Interpretation Abnormal (test code = 47215-9) [facility] [id number] 09:19:00 Test Item Value Reference Range Interpretation Comments POCT PREG (test code = 1605) Negative On board controls acceptable with Present C Line (test code = 3574) POCT PREG LOT # (test code = 3575) [id number] POCT PREG TEST DATE (test 2020-12-10 code = 3576) Lab Interpretation (test code = Normal 53639-2) [facility]"
[2021-10-28] MEDS ORDERED: ACETAMINOPHEN 325 MG TABLET ONE (16:04)
--- NOTE | 2021-10-28 17:36 | EDPHYS ---
Physician Documentation [facility] Name: Ariadna Pham Age: 25 yrs Sex: Female : 1995 Arrival Date: 10/28/2021 Time: 15:38 Bed Waiting Private MD: ED Physician eDrian Ordonez HPI: 10/28 15:51 This 25 yrs old Female presents to ER via Ambulatory with complaints of Flu Symptoms. jmm 15:51 The patient or guardian reports cough. Onset: The symptoms/episode began/occurred jmm gradually, 1 day(s) ago. Modifying factors: The symptoms are alleviated by nothing. the symptoms are aggravated by nothing. This is a 25 year old female with no chronic medical conditions that presents to the ED with complaints of cough, sore throat, headache, beginning yesterday. Home covid test was negative. . 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 - Social history:: Smoking status: Patient reports the use of cigarette tobacco products, denies chronic smoking, but will smoke occasionally. ROS: 15:51 Constitutional: Positive for body aches, chills. jmm 15:51 ENT: Positive for sore throat. 15:51 Respiratory: Positive for cough. 15:51 All other systems are negative. Exam: 15:51 Constitutional: This is a well developed, well nourished patient who is awake, alert, jmm and in no acute distress. Head/Face: atraumatic. Eyes: EOMI, no conjunctival erythema appreciated ENT: Moist Mucus Membranes Neck: Trachea midline, Supple 15:51 Chest/axilla: Normal chest wall appearance and motion. Cardiovascular: Regular rate and rhythm. No edema appreciated Respiratory: Normal respirations, no respiratory distress appreciated Abdomen/GI: Non distended, soft Back: Normal ROM Skin: General appearance color normal MS/ Extremity: Moves all extremities, no obvious deformities appreciated, no edema noted to the lower extremities Neuro: Awake and alert 15:51 ENT: Posterior pharynx: erythema, that is moderate. Vital Signs: 15:47 BP 109 / 87; Pulse 108; Resp 18 S; Temp 98.7(O); Pulse Ox 100% on R/A; Weight 72.57 kg aa5 (R); Height 5 ft. 7 in. (170.18 cm) (R); 15:47 Body Mass Index 25.06 (72.57 kg, 170.18 cm) aa5 MDM: 15:51 Patient medically screened. [facility] 17:34 Data reviewed: vital signs, nurses notes. Counseling: I had a detailed discussion with [facility] the patient and/or guardian regarding: the historical points, exam findings, and any diagnostic results supporting the discharge/admit diagnosis, the need for outpatient follow up, to return to the emergency department if symptoms worsen or persist or if there are any questions or concerns that arise at home. ED course: Patient is alert and non toxic in appearance in the ED. No signs of resp distress. Patient advised to follow up with pcp and otherwise given strict return precautions. patient understood and agrees with the plan of care. . 10/28 15:52 Order name: Influenza Screen (a \\T\\ B); Complete Time: 16:42 [facility] 10/28 15:52 Order name: SARS-COV-2 RT PCR (Document "Date of Onset" if Symptomatic); Complete Time: [facility] 17:31 10/28 15:52 Order name: Strep; Complete Time: 16:42 [facility] 10/28 16:41 Order name: Throat Culture EDMS Administered Medications: 15:58 Drug: Acetaminophen 650 mg Route: PO; aa 17:49 Follow up: Response: No adverse reaction aa Disposition Summary: 10/28/21 17:36 Discharge Ordered Location: Home [facility] Condition: Stable [facility] Diagnosis - Acute pharyngitis, unspecified [facility] Followup: [facility] - With: Private Physician - When: 2 - 3 days - Reason: Recheck today's complaints, Continuance of care, Re-evaluation by your physician Discharge Instructions: - Discharge Summary Sheet [facility] - Pharyngitis [facility] Forms: - Medication Reconciliation Form [facility] - Thank You Letter [facility] - Antibiotic Education [facility] - Prescription Opioid Use [facility] Prescriptions: - cefdinir 300 mg Oral capsule - take 1 capsule by ORAL route every 12 hours for 10 days; 20 capsule; Refills: rosario 0, Product Selection Permitted - ondansetron 4 mg Oral tablet,disintegrating - take 1 tablet by ORAL route every 4-6 hours As needed; 20 tablet; Refills: 0, rudym Product Selection Permitted Signatures: Dispatcher [employer] Albert Cline PA PA jmm Calderon, Audri, RN RN aa5
--- NOTE | 2021-10-28 17:36 | ER ---
Nurse's Notes [facility] Name: Ariadna Pham Age: 25 yrs Sex: Female : 1995 Arrival Date: 10/28/2021 Time: 15:38 Bed Waiting Private MD: Diagnosis: Acute pharyngitis, unspecified Presentation: 10/28 15:47 Chief complaint: Patient states: cough, congestion, sore throat, headache, and chills aa5 that began 2 days ago. Coronavirus screen: congestion, cough unrelated to allergies. Ebola Screen: Patient denies travel to an Ebola-affected area in the 21 days before illness onset. Initial Sepsis Screen: Does the patient meet any 2 criteria? HR > 90 bpm. Does the patient have a suspected source of infection? No. Patient's initial sepsis screen is negative. Risk Assessment: Do you want to hurt yourself or someone else? Patient reports no desire to harm self or others. Onset of symptoms was October 2021. 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 - Social history:: Smoking status: Patient reports the use of cigarette tobacco products, denies chronic smoking, but will smoke occasionally. Assessment: 17:49 Reassessment: Patient is alert, oriented x 3, equal unlabored respirations, skin aa5 warm/dry/pink. Vital Signs: 15:47 BP 109 / 87; Pulse 108; Resp 18 S; Temp 98.7(O); Pulse Ox 100% on R/A; Weight 72.57 kg aa5 (R); Height 5 ft. 7 in. (170.18 cm) (R); 15:47 Body Mass Index 25.06 (72.57 kg, 170.18 cm) aa5 ED Course: 15:38 Patient arrived in ED. mr 15:39 Albert Patel PA is PHCP. jmm 15:39 Derian Ordonez MD is Attending Physician. rudy 15:47 Arm band placed on. aa5 15:49 Triage completed. aa5 17:49 No provider procedures requiring assistance completed. Patient did not have IV access aa5 during this emergency room visit. Administered Medications: 15:58 Drug: Acetaminophen 650 mg Route: PO; aa5 17:49 Follow up: Response: No adverse reaction aa5 Outcome: 17:36 Discharge ordered by . rosario 17:49 Discharged to home ambulatory. aa5 17:49 Condition: stable 17:49 Discharge instructions given to patient, Instructed on discharge instructions, follow up and referral plans. medication usage, Demonstrated understanding of instructions, follow-up care, medications, Prescriptions given X 2. 17:49 Patient left the ED. aa5 Signatures: Albert Patel PA PA jmm Rivera, Mary Alyssa Gonsalves, RN RN aa5
[2021-10-28 17:54] VITALS: BP 109/87; TEMP 98.7; O2SAT 100
== END 2021-10-28 17:49 | disposition home or self-care (01) ==
LOC: ER 15:35
DX: J02.9 Acute pharyngitis, unspecified (principal); F41.8 Other specified anxiety disorders; F17.210 Nicotine dependence, cigarettes, uncomplicated; Z20.822 Contact with and (suspected) exposure to COVID-19
CPT/HCPCS: 87070; 87081; 87804; 99283; U0003